=== PATIENT | male | born 1965 | race Caucasian/White ===

== ENCOUNTER 2017-09-23 03:16 | Emergency (ER) | payer OTHER ==
[2017-09-23] MEDS: IPRATROPIUM (NEB) 0.5 MG/2.5 ML AMP NEB (04:12)
[2017-09-23] MEDS: ALBUTEROL 0.5% (NEB) 2.5 MG/0.5 ML AMP INH (04:12)
[2017-09-23] MEDS: METHYLPREDNISOLONE 125 MG INJ IM (04:24)
[2017-09-23] MEDS: SOD CHLORIDE 0.9% 1,000 ML IV (05:45)
[2017-09-23 05:52] LABS: ADD MAN DIFF? NO
[2017-09-23 05:56] LABS: BASOPHILS % 0.4 % (0.0-2.0); EOSINOPHILS # 0.3 10^3/ul (0.0-0.5); EOSINOPHILS % 3.7 % (0.0-7.0); HEMATOCRIT 42.6 % (42.0-52.0); HEMOGLOBIN 15.8 g/dl (14.0-18.0); LYMPHOCYTES # 1.1 10^3/ul (0.8-2.9); LYMPHOCYTES % 12.7 % (15.0-51.0); MEAN CORPUSCULAR HEMOGLOBIN 32.8 pg (29.0-33.0); MEAN CORPUSCULAR HGB CONC 37.1 g/dl (32.0-37.0); MEAN CORPUSCULAR VOLUME 88.4 fl (82.0-101.0); MEAN PLATELET VOLUME 9.8 fl (7.4-10.4); MONOCYTE # 0.5 10^3/ul (0.3-0.9); MONOCYTES % 5.5 % (0.0-11.0); NEUTROPHILS % 77.4 % (39.0-77.0); PLATELET COUNT 147 10^3/UL (140-415); RED BLOOD COUNT 4.82 10^6/ul (4.70-6.10); RED CELL DISTRIBUTION WIDTH 11.3 % (11.5-14.5)
[2017-09-23 06:44] LABS: ALANINE AMINOTRANSFERASE 50 IU/L (13-69); ALBUMIN 4.1 g/dl (3.3-4.9); ALBUMIN/GLOBULIN RATIO 1.51; ALKALINE PHOSPHATASE 69 IU/L (42-121); ANION GAP 14 (8-16); ASPARTATE AMINO TRANSFERASE 27 IU/L (15-46); BILIRUBIN,INDIRECT 1.6 mg/dl (0-1.1); BILIRUBIN,TOTAL 1.6 mg/dl (0.2-1.3); BLOOD UREA NITROGEN 20 mg/dl (7-20); CALCIUM 8.6 mg/dl (8.4-10.2); CARBON DIOXIDE 22 mmol/L (21-31); CHLORIDE 109 mmol/L (97-110); CREATININE 0.95 mg/dl (0.61-1.24); GLUCOSE 154 mg/dl (70-220); POTASSIUM 3.3 mmol/L (3.5-5.1); SODIUM 142 mmol/L (135-144); TOTAL PROTEIN 6.8 g/dl (6.1-8.1)
[2017-09-23 06:56] LABS: TROPONIN-I < 0.012 ng/ml (0.00-0.12)
[2017-09-23 07:20] LABS: B-TYPE NATRIURETIC PEPTIDE 26 PG/ML (0-125)
== END 2017-09-23 08:36 | disposition home or self-care (01) ==
LOC: FTE 03:16 → E/R 08:36
DX: J45.901 Unspecified asthma with (acute) exacerbation (principal); R55 Syncope and collapse; Z87.891 Personal history of nicotine dependence
CPT/HCPCS: 36415; 70450; 71045; 80053; 83880; 84443; 84484; 85025; 93005; 94644; 96372; 99285-25

== ENCOUNTER 2017-09-26 17:31 | Emergency (ER) | payer OTHER ==
[2017-09-26 18:30] LABS: ADD MAN DIFF? NO
[2017-09-26] MEDS: SOD CHLORIDE 0.9% 1,000 ML IV (18:51)
[2017-09-26] MEDS: LORAZEPAM 2 MG INJ IV (18:51)
[2017-09-26 18:53] LABS: ANION GAP 17 (8-16); BLOOD UREA NITROGEN 18 mg/dl (7-20); CALCIUM 9.7 mg/dl (8.4-10.2); CARBON DIOXIDE 23 mmol/L (21-31); CHLORIDE 102 mmol/L (97-110); CREATININE 0.91 mg/dl (0.61-1.24); GLUCOSE 157 mg/dl (70-220); POTASSIUM 3.4 mmol/L (3.5-5.1); SODIUM 139 mmol/L (135-144)
[2017-09-26] MEDS: IPRATROPIUM (NEB) 0.5 MG/2.5 ML AMP INH (18:57)
[2017-09-26] MEDS: ALBUTEROL 0.5% (NEB) 2.5 MG/0.5 ML AMP INH (18:58)
[2017-09-26 19:05] LABS: TROPONIN-I < 0.012 ng/ml (0.00-0.12)
[2017-09-26 19:58] LABS: BASOPHIL # 0.1 10^3/ul (0.0-0.1); BASOPHILS % 0.8 % (0.0-2.0); EOSINOPHILS # 0.3 10^3/ul (0.0-0.5); EOSINOPHILS % 4.7 % (0.0-7.0); HEMATOCRIT 44.4 % (42.0-52.0); LYMPHOCYTES # 1.3 10^3/ul (0.8-2.9); MEAN CORPUSCULAR HGB CONC 37.2 g/dl (32.0-37.0); MEAN CORPUSCULAR VOLUME 86.2 fl (82.0-101.0); MEAN PLATELET VOLUME 9.9 fl (7.4-10.4); MONOCYTE # 0.5 10^3/ul (0.3-0.9); MONOCYTES % 8.1 % (0.0-11.0); NEUTROPHILS % 64.9 % (39.0-77.0); NUCLEATED RED BLOOD CELLS # 0.1 10^3/ul (0.0-0.0); NUCLEATED RED BLOOD CELLS% 0.8 /100WBC (0.0-0.0); RED BLOOD COUNT 5.15 10^6/ul (4.70-6.10)
[2017-09-26 20:03] LABS: PLATELET COUNT 209 10^3/UL (140-415)
[2017-09-26 20:03] LABS: WHITE BLOOD COUNT 6.8 10^3/ul (4.8-10.8)
[2017-09-26 20:04] LABS: HEMOGLOBIN 16.5 g/dl (14.0-18.0)
== END 2017-09-26 20:40 | disposition home or self-care (01) ==
LOC: E/R 17:31
DX: J45.41 Moderate persistent asthma with (acute) exacerbation (principal); R20.2 Paresthesia of skin; I10 Essential (primary) hypertension; F41.9 Anxiety disorder, unspecified; R40.2142 Coma scale, eyes open, spontaneous, at arrival to emergency department; R40.2252 Coma scale, best verbal response, oriented, at arrival to emergency department; R40.2362 Coma scale, best motor response, obeys commands, at arrival to emergency department; Z87.891 Personal history of nicotine dependence
CPT/HCPCS: 71045; 80048; 84484; 85025; 93005; 94644; 96361; 96374; 99285-25

== ENCOUNTER 2019-02-27 09:10 | Day surgery (SDC) | payer OTHER ==
[2019-02-27] MEDS ORDERED: PROPOFOL 40 ML (10:02)
== END 2019-02-27 16:47 | disposition home or self-care (01) ==
LOC: GIL 09:10
DX: Z12.11 Encounter for screening for malignant neoplasm of colon (principal); D12.6 Benign neoplasm of colon, unspecified; K64.8 Other hemorrhoids
CPT/HCPCS: 45380; 88305